=== PATIENT | female | born 1950 | race Caucasian/White ===

== ENCOUNTER 2016-11-22 13:16 | Outpatient (CLI) | payer OTHER ==
[2016-06-28 14:31] VITALS: BMI 45.3
[~2016-11-22 13:16] MED LIST: ACET-1172 PO; CHLO1CAP28 PO; CIPR-211 PO; CYAN1TAB52 SL; ENAL5TAB85 PO; ERGO400C2 PO; FLA250 PO; GLU500 PO; METR500T PO; MULT-1117; NITR-85 PO; PARO20TA51 PO; PHEN16.227 PO; RANI-281 PO; SACC250C3 PO; TYC3 PO
== END 2016-11-22 21:11 | disposition home or self-care (01) ==
LOC: SUS 13:16
PROVIDERS: ATTEND Internal Medicine
DX: R16.2 Hepatomegaly with splenomegaly, not elsewhere classified (principal)
CPT/HCPCS: 76700-TC

== ENCOUNTER 2017-02-14 13:05 | Inpatient (IN) | payer OTHER ==
[~2017-02-14] VITALS: Ht 154.9 cm; Wt 106.6 kg
[~2017-02-14 13:05] MED LIST changes: -CHLO1CAP28 PO; -ERGO400C2 PO; -NITR-85 PO; -RANI-281 PO; -TYC3 PO
[2017-02-14 16:03] VITALS: BP_SYST 137
[2017-02-14] MEDS ORDERED: FOLIC ACID SL SCH (16:15)
[2017-02-14] MEDS ORDERED: DEXTROSE 50% JECT 50 ML DISP.SYRIN IVP PRN (16:15)
[2017-02-14] MEDS ORDERED: CYANOCOBALAMIN SL SCH (16:15)
[2017-02-14] MEDS ORDERED: INSULIN REGULAR, HUMAN 100 UNITS/ML, 10 ML VIAL (novoLIN R) SUBCUT PRN (16:15)
[2017-02-14] MEDS ORDERED: IRON DEXTRAN COMPLEX 25 MG in NS 50 ML IV ONE (16:15)
[2017-02-14] MEDS ORDERED: metroNIDAZOLE 250 MG TABLET PO SCH (17:00)
[2017-02-14 17:08] LABS: CALCIUM 8.8 mg/dL (8.4-11.0); CREATININE 1.25 mg/dL (0.55-1.30); POTASSIUM 4.1 mmol/L (3.5-5.1)
[2017-02-14 17:13] LABS: ALBUMIN 3.7 g/dL (3.4-4.8); TOTAL BILIRUBIN 0.2 mg/dL (0.0-1.0); TOTAL PROTEIN, SERUM 7.7 g/dL (6.4-8.3)
[2017-02-14 17:20] LABS: BASOPHILS % (AUTO) 0.4 % (0.0-2.0); EOSINOPHILS # (AUTO) 0.2 K/uL (0.0-0.4); HEMATOCRIT 31.8 % (36-48); LYMPHOCYTES # (AUTO) 1.8 K/uL (1.0-5.5); LYMPHOCYTES % (AUTO) 15.4 % (20.5-51.5); MEAN CORPUSCULAR HEMOGLOBIN 26 pg (27-31); MEAN CORPUSCULAR HGB CONC 31 % (32-36); MEAN CORPUSCULAR VOLUME 83 fL (79.0-98.0); MONOCYTES # (AUTO) 0.4 K/uL (0.0-1.0); MONOCYTES % (AUTO) 3.7 % (1.7-9.3); NEUTROPHILS # (AUTO) 9.6 K/uL (1.8-7.7); NEUTROPHILS % (AUTO) 78.5 % (40.0-70.0); PLATELET COUNT (AUTO) 512 K/uL (130-430); RED BLOOD CELL COUNT(AUTO) 3.84 MIL/uL (4.2-6.2); RED CELL DISTRIBUTION WIDTH 14.2 % (9.0-15.0)
[2017-02-14 17:32] LABS: IRON (SERUM) 25 mcg/dL (37-145); TOTAL IRON BIND. CAPACITY 446 ug/dL (250-450)
[2017-02-14] MEDS: LR 1,000 ML IV SCH (17:54)
[2017-02-14] MEDS ORDERED: IRON DEXTRAN COMPLEX 1,000 MG in NS 500 ML IV ONE (18:00)
[2017-02-14] MEDS: metFORMIN HCL 500 MG TABLET PO SCH (18:06)
[2017-02-14 19:30] VITALS: BP_SYST 120
[2017-02-14] MEDS: PARoxetine HCL 20 MG TABLET PO SCH (21:20)
[2017-02-14] MEDS: metroNIDAZOLE 500 MG TABLET PO SCH (21:20)
[2017-02-14] MEDS: BELLADONNA ALKALOIDS/PHENOBARB 16.2 MG TABLET PO SCH (21:20)
[2017-02-14] MEDS: ENALAPRIL MALEATE 5 MG TABLET (VASOTEC) PO SCH (21:20)
[2017-02-14] MEDS: LACTOBACILLUS RHAMNOSUS GG 1 CAP CAPSULE PO SCH (21:21)
[2017-02-14 23:36] VITALS: BP_SYST 101
[2017-02-15] MEDS: ACETAMINOPHEN/CODEINE 300 MG-30 MG TABLET PO PRN ×2 (03:37→12:51)
[2017-02-15 03:46] VITALS: BP_SYST 99
[2017-02-15 06:47] LABS: BILIRUBIN,URINE NEGATIVE (NEGATIVE); BLOOD, URINE NEGATIVE (NEGATIVE); CLARITY/URINE CLEAR (CLEAR); COLOR,URINE YELLOW (YELLOW); GLUCOSE,URINE NEGATIVE (NEGATIVE); KETONES,URINE NEGATIVE (NEGATIVE); LEUKOCYTE ESTERASE ,URINE 1+ (NEGATIVE); NITRITE, URINE NEGATIVE (NEGATIVE); PROTEIN URINE NEGATIVE (NEGATIVE); UROBILINOGEN,URINE 0.2 (0.2-1.0)
[2017-02-15 07:28] LABS: BASOPHILS % (AUTO) 0.4 % (0.0-2.0); EOSINOPHILS # (AUTO) 0.2 K/uL (0.0-0.4); EOSINOPHILS % (AUTO) 2.5 % (0.0-4.0); HEMATOCRIT 26.4 % (36-48); HEMOGLOBIN 8.4 g/dL (12.0-16.0); LYMPHOCYTES # (AUTO) 1.6 K/uL (1.0-5.5); LYMPHOCYTES % (AUTO) 18.3 % (20.5-51.5); MEAN CORPUSCULAR HEMOGLOBIN 26 pg (27-31); MEAN CORPUSCULAR HGB CONC 32 % (32-36); MEAN CORPUSCULAR VOLUME 83 fL (79.0-98.0); MONOCYTES # (AUTO) 0.6 K/uL (0.0-1.0); MONOCYTES % (AUTO) 6.6 % (1.7-9.3); NEUTROPHILS # (AUTO) 6.2 K/uL (1.8-7.7); NEUTROPHILS % (AUTO) 72.2 % (40.0-70.0); PLATELET COUNT (AUTO) 372 K/uL (130-430)
[2017-02-15 07:44] LABS: WHITE BLOOD COUNT (AUTO) 8.6 K/uL (4.8-10.8)
[2017-02-15 07:54] VITALS: BP_SYST 101
[2017-02-15 07:57] LABS: CALCIUM 8.4 mg/dL (8.4-11.0); CREATININE 1.08 mg/dL (0.55-1.30); POTASSIUM 4.1 mmol/L (3.5-5.1); THYROID STIMULATING HORMONE 1.9 uIu/mL (0.34-4.82)
[2017-02-15] MEDS: BELLADONNA ALKALOIDS/PHENOBARB 16.2 MG TABLET PO SCH ×2 (08:02→21:44)
[2017-02-15] MEDS: metFORMIN HCL 500 MG TABLET PO SCH ×2 (08:02→18:41)
[2017-02-15] MEDS: ASPIRIN 81 MG TABLET(ECOTRIN) PO SCH (08:02)
[2017-02-15] MEDS: PARoxetine HCL 20 MG TABLET PO SCH ×2 (08:02→21:44)
[2017-02-15] MEDS: LACTOBACILLUS RHAMNOSUS GG 1 CAP CAPSULE PO SCH ×2 (08:03→21:44)
[2017-02-15] MEDS: metroNIDAZOLE 500 MG TABLET PO SCH ×3 (08:03→21:44)
[2017-02-15 08:49] LABS: BACTERIA,URINE FEW /HPF (None Seen); RBC,URINE 0-3 /HPF (0-3)
[2017-02-15 08:50] LABS: HYALINE CASTS, URINE 0-10 /LPF (None Seen)
[2017-02-15] MEDS ORDERED: MULTIVITAMINS TAB 1 TABLET PO SCH (09:00)
[2017-02-15] MEDS: LR 1,000 ML IV SCH (09:10)
[2017-02-15 11:32] VITALS: BP_SYST 97
[2017-02-15] MEDS ORDERED: IRON DEXTRAN COMPLEX 500 MG in NS 500 ML IV ONE ×2 (13:00→14:38)
[2017-02-15 16:32] VITALS: BP_SYST 123
[2017-02-15] MEDS: MULTIVITAMINS TAB 1 TABLET PO SCH (18:41)
[2017-02-15 19:50] VITALS: BP_SYST 147
[2017-02-15] MEDS: ENALAPRIL MALEATE 5 MG TABLET (VASOTEC) PO SCH (21:00)
[2017-02-15] MEDS ORDERED: ALTEPLASE 2 MG VIAL MC ONE ×3 (21:00→21:54)
[2017-02-16 00:10] VITALS: BP_SYST 114
[2017-02-16 04:23] VITALS: BP_SYST 103
[2017-02-16] MEDS: LR 1,000 ML IV SCH ×2 (05:32→16:29)
[2017-02-16 07:32] LABS: BASOPHILS % (AUTO) 0.5 % (0.0-2.0); EOSINOPHILS # (AUTO) 0.3 K/uL (0.0-0.4); EOSINOPHILS % (AUTO) 3.2 % (0.0-4.0); HEMATOCRIT 26.9 % (36-48); HEMOGLOBIN 8.5 g/dL (12.0-16.0); LYMPHOCYTES # (AUTO) 1.5 K/uL (1.0-5.5); MEAN CORPUSCULAR HEMOGLOBIN 26 pg (27-31); MEAN CORPUSCULAR HGB CONC 32 % (32-36); MEAN CORPUSCULAR VOLUME 83 fL (79.0-98.0); MONOCYTES # (AUTO) 0.6 K/uL (0.0-1.0); MONOCYTES % (AUTO) 6.9 % (1.7-9.3); NEUTROPHILS # (AUTO) 6.8 K/uL (1.8-7.7); NEUTROPHILS % (AUTO) 73.4 % (40.0-70.0); PLATELET COUNT (AUTO) 365 K/uL (130-430); RED BLOOD CELL COUNT(AUTO) 3.25 MIL/uL (4.2-6.2); RED CELL DISTRIBUTION WIDTH 14.9 % (9.0-15.0); WHITE BLOOD COUNT (AUTO) 9.1 K/uL (4.8-10.8)
[2017-02-16 07:47] LABS: CALCIUM 8.7 mg/dL (8.4-11.0); CREATININE 1.03 mg/dL (0.55-1.30); POTASSIUM 4.4 mmol/L (3.5-5.1)
[2017-02-16 08:53] VITALS: BP_SYST 106
[2017-02-16] MEDS: BELLADONNA ALKALOIDS/PHENOBARB 16.2 MG TABLET PO SCH ×2 (09:10→21:31)
[2017-02-16] MEDS: metFORMIN HCL 500 MG TABLET PO SCH ×2 (09:11→18:22)
[2017-02-16] MEDS: LACTOBACILLUS RHAMNOSUS GG 1 CAP CAPSULE PO SCH ×2 (09:11→21:30)
[2017-02-16] MEDS: metroNIDAZOLE 500 MG TABLET PO SCH ×3 (09:11→21:30)
[2017-02-16] MEDS: MULTIVITAMINS TAB 1 TABLET PO SCH ×2 (09:11→18:22)
[2017-02-16] MEDS: PARoxetine HCL 20 MG TABLET PO SCH ×2 (09:11→21:31)
[2017-02-16] MEDS: ASPIRIN 81 MG TABLET(ECOTRIN) PO SCH (09:11)
[2017-02-16] MEDS: ACETAMINOPHEN/CODEINE 300 MG-30 MG TABLET PO PRN (11:31)
[2017-02-16 11:35] VITALS: BP_SYST 135
[2017-02-16 11:51] LABS: RETICULOCYTE COUNT 3.4 % (0.5-1.5)
[2017-02-16] MEDS: cefTRIAXone 1 GM in D5W 50 ML IV SCH ×2 (13:14→18:21)
[2017-02-16] MEDS ORDERED: DIATR MEGLU/DIATRIZ SOD 30 ML SOLUTION PO ONE (13:25)
[2017-02-16] MEDS ORDERED: IOHEXOL 100 ML IV ONE (15:50)
[2017-02-16 15:56] VITALS: BP_SYST 109
[2017-02-16 19:50] VITALS: BP_SYST 123
[2017-02-16] MEDS: ENALAPRIL MALEATE 5 MG TABLET (VASOTEC) PO SCH (21:31)
[2017-02-17] VITALS (8 sets, daily range): BP systolic 97–125
[2017-02-17] MEDS: PARoxetine HCL 20 MG TABLET PO SCH ×2 (08:17→20:33)
[2017-02-17] MEDS: LACTOBACILLUS RHAMNOSUS GG 1 CAP CAPSULE PO SCH ×2 (08:17→20:33)
[2017-02-17] MEDS: metFORMIN HCL 500 MG TABLET PO SCH ×2 (08:17→18:20)
[2017-02-17] MEDS: ASPIRIN 81 MG TABLET(ECOTRIN) PO SCH (08:17)
[2017-02-17] MEDS: metroNIDAZOLE 500 MG TABLET PO SCH ×3 (08:18→20:33)
[2017-02-17] MEDS: MULTIVITAMINS TAB 1 TABLET PO SCH ×2 (08:18→18:20)
[2017-02-17] MEDS: BELLADONNA ALKALOIDS/PHENOBARB 16.2 MG TABLET PO SCH ×2 (08:18→20:33)
[2017-02-17] MEDS: LR 1,000 ML IV SCH ×2 (09:09→20:34)
[2017-02-17] MEDS: cefTRIAXone 1 GM in D5W 50 ML IV SCH (12:30)
[2017-02-17 12:45] LABS: BASOPHILS # (AUTO) 0.2 K/uL (0.0-0.2); BASOPHILS % (AUTO) 1.8 % (0.0-2.0); EOSINOPHILS # (AUTO) 0.2 K/uL (0.0-0.4); EOSINOPHILS % (AUTO) 1.9 % (0.0-4.0); HEMATOCRIT 33.6 % (36-48); HEMOGLOBIN 10.7 g/dL (12.0-16.0); LYMPHOCYTES # (AUTO) 1.4 K/uL (1.0-5.5); LYMPHOCYTES % (AUTO) 12.6 % (20.5-51.5); MEAN CORPUSCULAR HEMOGLOBIN 26 pg (27-31); MEAN CORPUSCULAR HGB CONC 32 % (32-36); MEAN CORPUSCULAR VOLUME 83 fL (79.0-98.0); MONOCYTES # (AUTO) 0.7 K/uL (0.0-1.0); MONOCYTES % (AUTO) 6.1 % (1.7-9.3); NEUTROPHILS # (AUTO) 8.6 K/uL (1.8-7.7); NEUTROPHILS % (AUTO) 77.6 % (40.0-70.0); PLATELET COUNT (AUTO) 436 K/uL (130-430); RED BLOOD CELL COUNT(AUTO) 4.05 MIL/uL (4.2-6.2); RED CELL DISTRIBUTION WIDTH 15.1 % (9.0-15.0); WHITE BLOOD COUNT (AUTO) 11.1 K/uL (4.8-10.8)
[2017-02-17] MEDS: ACETAMINOPHEN/CODEINE 300 MG-30 MG TABLET PO PRN (13:34)
[2017-02-17] MEDS ORDERED: BISACODYL 5 MG TABLET.DR (DULCOLAX) PO ONE (17:00)
[2017-02-17] MEDS ORDERED: GOLYTELY / COLYTE SOLUTION 4 LITERS PO ONE (18:00)
[2017-02-17] MEDS: ENALAPRIL MALEATE 5 MG TABLET (VASOTEC) PO SCH (20:34)
[2017-02-17] MEDS ORDERED: PRO40 PO (22:37)
[2017-02-17] MEDS ORDERED: METR500T PO (22:38)
[2017-02-17] MEDS ORDERED: L.RH1CAP PO (22:39)
[2017-02-18 00:14] VITALS: BP_SYST 107
== END 2017-02-17 23:59 | disposition home or self-care (01) | DRG 812 ==
LOC: SMU 15:30
PROVIDERS: ADMIT Internal Medicine; ATTEND Internal Medicine
DX: D50.9 Iron deficiency anemia, unspecified (principal); N39.0 Urinary tract infection, site not specified; K51.90 Ulcerative colitis, unspecified, without complications; K92.2 Gastrointestinal hemorrhage, unspecified; Z68.41 Body mass index [BMI] 40.0-44.9, adult; K27.9 Peptic ulcer, site unspecified, unspecified as acute or chronic, without hemorrhage or perforation; M41.9 Scoliosis, unspecified; K52.9 Noninfective gastroenteritis and colitis, unspecified; E11.9 Type 2 diabetes mellitus without complications; I10 Essential (primary) hypertension; E66.9 Obesity, unspecified; Z88.8 Allergy status to other drugs, medicaments and biological substances; Z88.0 Allergy status to penicillin; Z90.49 Acquired absence of other specified parts of digestive tract; Z90.710 Acquired absence of both cervix and uterus; Z86.19 Personal history of other infectious and parasitic diseases
CPT/HCPCS: 36415; 74000-TC; 80048; 80053; 80061; 81000-TC; 82272; 82306; 82607; 82746; 82962; 83540-TC; 83550-TC; 83690-TC; 84443-TC; 85025; 85044-TC; 87045-TC; 87046; 87086; 87177; 87230-TC; 89055; J0696; J1750; J1815; J2997; J7040; J7060; J7120; Q9964; Q9967

== ENCOUNTER 2018-03-24 17:21 | Inpatient (IN) | payer OTHER ==
[~2018-03-24] VITALS: Ht 154.9 cm; Wt 95.3 kg
[~2018-03-24 17:21] MED LIST changes: +L.RH1CAP PO; +PRO40 PO
[2018-03-24 17:30] VITALS: BP_SYST 131
[2018-03-24 17:49] VITALS: BP_SYST 131
[2018-03-24] MEDS ORDERED: [UNRECOGNIZED DRUG - OTHER] (17:49)
[2018-03-24] MEDS ORDERED: MESA500C PO (17:49)
[2018-03-24] MEDS: LR 1,000 ML IV SCH (18:15)
[2018-03-24 18:49] LABS: BASOPHILS % (AUTO) 0.2 % (0.0-2.0); EOSINOPHILS # (AUTO) 0.5 K/uL (0.0-0.4); EOSINOPHILS % (AUTO) 3.7 % (0.0-4.0); HEMATOCRIT 35.9 % (36-48); HEMOGLOBIN 11.9 g/dL (12.0-16.0); LYMPHOCYTES # (AUTO) 1.4 K/uL (1.0-5.5); LYMPHOCYTES % (AUTO) 10.6 % (20.5-51.5); MEAN CORPUSCULAR HEMOGLOBIN 30 pg (27-31); MEAN CORPUSCULAR HGB CONC 33 % (32-36); MEAN CORPUSCULAR VOLUME 89 fL (79.0-98.0); MONOCYTES # (AUTO) 0.7 K/uL (0.0-1.0); MONOCYTES % (AUTO) 5.6 % (1.7-9.3); NEUTROPHILS # (AUTO) 10.6 K/uL (1.8-7.7); NEUTROPHILS % (AUTO) 79.9 % (40.0-70.0); PLATELET COUNT (AUTO) 415 K/uL (130-430); RED BLOOD CELL COUNT(AUTO) 4.02 MIL/uL (4.2-6.2); WHITE BLOOD COUNT (AUTO) 13.2 K/uL (4.8-10.8)
[2018-03-24 18:59] LABS: CALCIUM 8.7 mg/dL (8.4-11.0); CREATININE 1.45 mg/dL (0.55-1.30); POTASSIUM 3.8 mmol/L (3.5-5.1)
[2018-03-24 19:04] LABS: TOTAL IRON BIND. CAPACITY 373 ug/dL (250-450)
[2018-03-24 19:05] LABS: ALBUMIN 3.5 g/dL (3.4-4.8); TOTAL BILIRUBIN 0.4 mg/dL (0.0-1.0)
[2018-03-24 19:10] VITALS: BP_SYST 115
[2018-03-24] MEDS ORDERED: INSULIN REGULAR, HUMAN 100 UNITS/ML, 10 ML VIAL (novoLIN R) SUBCUT PRN (20:00)
[2018-03-24] MEDS ORDERED: DEXTROSE 50% JECT 50 ML DISP.SYRIN IVP PRN (20:00)
[2018-03-24] MEDS ORDERED: NON-FORMULARY MEDICATION (Saccharomyces Boulardii (Florastor) 250 MG) PO SCH (21:00)
[2018-03-24] MEDS ORDERED: metroNIDAZOLE 500 mg/NS 200 ML IV ONE (21:59)
[2018-03-24] MEDS ORDERED: VANCOMYCIN HCL 250 MG CAPSULE ONE (22:58)
[2018-03-24] MEDS: PARoxetine HCL 20 MG TABLET PO SCH (23:05)
[2018-03-24] MEDS: VANCOMYCIN HCL 250 MG CAPSULE PO SCH (23:05)
[2018-03-24] MEDS: metroNIDAZOLE 500 mg/NS 100 ML IV SCH (23:06)
[2018-03-24] MEDS ORDERED: ACETAMINOPHEN 325 MG TABLET PO PRN (23:30)
[2018-03-24] MEDS ORDERED: TEMAZEPAM 15 MG CAPSULE PO PRN (23:30)
[2018-03-24] MEDS ORDERED: traMADol HCL HCL 50 MG TABLET (ULTRAM) PO PRN (23:30)
[2018-03-25 00:20] VITALS: BP_SYST 128
[2018-03-25] MEDS: LR 1,000 ML IV SCH ×2 (01:20→13:43)
[2018-03-25] MEDS: metroNIDAZOLE 500 mg/NS 100 ML IV SCH ×3 (05:23→21:27)
[2018-03-25 07:38] LABS: BASOPHILS % (AUTO) 0.5 % (0.0-2.0); EOSINOPHILS # (AUTO) 0.4 K/uL (0.0-0.4); EOSINOPHILS % (AUTO) 5.5 % (0.0-4.0); HEMATOCRIT 34.2 % (36-48); HEMOGLOBIN 11.3 g/dL (12.0-16.0); LYMPHOCYTES # (AUTO) 1.2 K/uL (1.0-5.5); LYMPHOCYTES % (AUTO) 14.8 % (20.5-51.5); MEAN CORPUSCULAR HEMOGLOBIN 30 pg (27-31); MEAN CORPUSCULAR HGB CONC 33 % (32-36); MEAN CORPUSCULAR VOLUME 91 fL (79.0-98.0); MONOCYTES # (AUTO) 0.5 K/uL (0.0-1.0); NEUTROPHILS # (AUTO) 5.9 K/uL (1.8-7.7); NEUTROPHILS % (AUTO) 73.2 % (40.0-70.0); RED BLOOD CELL COUNT(AUTO) 3.75 MIL/uL (4.2-6.2); RED CELL DISTRIBUTION WIDTH 12.9 % (9.0-15.0)
[2018-03-25 07:41] LABS: BILIRUBIN,URINE NEGATIVE (NEGATIVE); BLOOD, URINE NEGATIVE (NEGATIVE); CLARITY/URINE CLEAR (CLEAR); COLOR,URINE YELLOW (YELLOW); GLUCOSE,URINE NEGATIVE (NEGATIVE); KETONES,URINE NEGATIVE (NEGATIVE); LEUKOCYTE ESTERASE ,URINE NEGATIVE (NEGATIVE); NITRITE, URINE NEGATIVE (NEGATIVE); PH,URINE 5.5 (5.0-8.0); PROTEIN URINE NEGATIVE (NEGATIVE); UROBILINOGEN,URINE 0.2 (0.2-1.0)
[2018-03-25 07:50] VITALS: BP_SYST 121
[2018-03-25 08:39] LABS: PLATELET COUNT (AUTO) 344 K/uL (130-430)
[2018-03-25 08:47] LABS: CALCIUM 8.7 mg/dL (8.4-11.0); CREATININE 1.21 mg/dL (0.55-1.30); FREE T4 (FREE THYROXINE) 0.6 ng/dL (0.6-1.6); THYROID STIMULATING HORMONE 1.37 uIu/mL (0.34-4.82)
[2018-03-25] MEDS: PARoxetine HCL 20 MG TABLET PO SCH ×2 (09:44→20:20)
[2018-03-25] MEDS: VANCOMYCIN HCL 250 MG CAPSULE PO SCH ×4 (09:45→20:20)
[2018-03-25] MEDS: MESALAMINE 250 MG CAPSULE.SA PO SCH ×2 (09:47→20:21)
[2018-03-25] MEDS: LACTOBACILLUS RHAMNOSUS GG 1 CAP CAPSULE PO SCH ×2 (09:51→20:19)
[2018-03-25] MEDS: MULTIVITAMINS TAB 1 TABLET PO SCH (09:51)
[2018-03-25] MEDS: PANTOPRAZOLE SODIUM 40 MG TAB PO SCH (09:54)
[2018-03-25] MEDS: ONDANSETRON HCL 4 MG/2 ML VIAL IVP PRN (11:18)
[2018-03-25] MEDS: traMADol HCL HCL 50 MG TABLET (ULTRAM) PO PRN (11:21)
[2018-03-25 12:16] VITALS: BP_SYST 127
[2018-03-25 16:14] VITALS: BP_SYST 105
[2018-03-25 20:10] VITALS: BP_SYST 108
[2018-03-25] MEDS ORDERED: TEMAZEPAM 15 MG CAPSULE PO PRN (21:00)
[2018-03-26 00:12] VITALS: BP_SYST 108
[2018-03-26] MEDS: metroNIDAZOLE 500 mg/NS 100 ML IV SCH ×3 (04:59→21:54)
[2018-03-26] MEDS: LR 1,000 ML IV SCH ×2 (05:00→20:25)
[2018-03-26 07:08] LABS: CALCIUM 8.7 mg/dL (8.4-11.0); CREATININE 1.26 mg/dL (0.55-1.30)
[2018-03-26 07:14] LABS: BASOPHILS % (AUTO) 0.3 % (0.0-2.0); EOSINOPHILS # (AUTO) 0.4 K/uL (0.0-0.4); EOSINOPHILS % (AUTO) 5.5 % (0.0-4.0); HEMATOCRIT 32.3 % (36-48); HEMOGLOBIN 10.6 g/dL (12.0-16.0); LYMPHOCYTES # (AUTO) 1.3 K/uL (1.0-5.5); LYMPHOCYTES % (AUTO) 16.4 % (20.5-51.5); MEAN CORPUSCULAR HEMOGLOBIN 30 pg (27-31); MEAN CORPUSCULAR HGB CONC 33 % (32-36); MEAN CORPUSCULAR VOLUME 91 fL (79.0-98.0); MONOCYTES # (AUTO) 0.5 K/uL (0.0-1.0); MONOCYTES % (AUTO) 6.5 % (1.7-9.3); NEUTROPHILS # (AUTO) 5.8 K/uL (1.8-7.7); NEUTROPHILS % (AUTO) 71.3 % (40.0-70.0); PLATELET COUNT (AUTO) 307 K/uL (130-430); RED BLOOD CELL COUNT(AUTO) 3.53 MIL/uL (4.2-6.2); RED CELL DISTRIBUTION WIDTH 13.1 % (9.0-15.0)
[2018-03-26 08:00] VITALS: BP_SYST 127
[2018-03-26] MEDS: VANCOMYCIN HCL 250 MG CAPSULE PO SCH ×4 (08:45→20:24)
[2018-03-26] MEDS: PARoxetine HCL 20 MG TABLET PO SCH ×2 (08:45→20:24)
[2018-03-26] MEDS: PANTOPRAZOLE SODIUM 40 MG TAB PO SCH (08:46)
[2018-03-26] MEDS: MULTIVITAMINS TAB 1 TABLET PO SCH (08:46)
[2018-03-26] MEDS: LACTOBACILLUS RHAMNOSUS GG 1 CAP CAPSULE PO SCH ×2 (08:46→20:24)
[2018-03-26] MEDS: MESALAMINE 250 MG CAPSULE.SA PO SCH ×2 (08:47→20:25)
[2018-03-26] MEDS: ONDANSETRON HCL 4 MG/2 ML VIAL IVP PRN (09:34)
[2018-03-26 12:00] VITALS: BP_SYST 108
[2018-03-26] MEDS: SOD FERRIC GLUC COMPLEX/SUC 125 MG in NS 100 ML IV SCH (14:47)
[2018-03-26] MEDS: traMADol HCL HCL 50 MG TABLET (ULTRAM) PO PRN (14:53)
[2018-03-26 16:00] VITALS: BP_SYST 116
[2018-03-26 19:58] VITALS: BP_SYST 101
[2018-03-27] VITALS: BP_SYST 121
[2018-03-27] MEDS: metroNIDAZOLE 500 mg/NS 100 ML IV SCH ×2 (06:14→14:15)
[2018-03-27] MEDS: MULTIVITAMINS TAB 1 TABLET PO SCH (08:11)
[2018-03-27] MEDS: LACTOBACILLUS RHAMNOSUS GG 1 CAP CAPSULE PO SCH (08:11)
[2018-03-27] MEDS: PANTOPRAZOLE SODIUM 40 MG TAB PO SCH (08:11)
[2018-03-27] MEDS: PARoxetine HCL 20 MG TABLET PO SCH (08:11)
[2018-03-27] MEDS: VANCOMYCIN HCL 250 MG CAPSULE PO SCH ×3 (08:11→16:41)
[2018-03-27] MEDS: MESALAMINE 250 MG CAPSULE.SA PO SCH (08:12)
[2018-03-27 08:45] VITALS: BP_SYST 128
[2018-03-27] MEDS: LR 1,000 ML IV SCH (11:18)
[2018-03-27 11:21] VITALS: BP_SYST 101
[2018-03-27] MEDS: SOD FERRIC GLUC COMPLEX/SUC 125 MG in NS 100 ML IV SCH (14:14)
[2018-03-27 15:21] VITALS: BP_SYST 122
[2018-03-27] MEDS ORDERED: CYANOCOBALAMIN 1000 MCG/ML VIAL IM ONE (17:00)
[2018-03-27] MEDS ORDERED: FOLIC ACID 1 MG TABLET PO ONE (17:00)
[2018-03-27 17:17] VITALS: BP_SYST 122
[2018-03-28] MEDS ORDERED: FOLIC ACID 1 MG TABLET PO SCH (09:00)
== END 2018-03-27 17:30 | disposition home or self-care (01) | DRG 683 ==
LOC: SMU 17:21
PROVIDERS: ADMIT Internal Medicine; ATTEND Internal Medicine
DX: N17.9 Acute kidney failure, unspecified (principal); R65.10 Systemic inflammatory response syndrome (SIRS) of non-infectious origin without acute organ dysfunction; I70.90 Unspecified atherosclerosis; D50.9 Iron deficiency anemia, unspecified; K44.9 Diaphragmatic hernia without obstruction or gangrene; K52.9 Noninfective gastroenteritis and colitis, unspecified; E86.0 Dehydration; E66.9 Obesity, unspecified; F32.9 Major depressive disorder, single episode, unspecified; I10 Essential (primary) hypertension; E11.9 Type 2 diabetes mellitus without complications; Z68.39 Body mass index [BMI] 39.0-39.9, adult; Z90.49 Acquired absence of other specified parts of digestive tract; Z90.710 Acquired absence of both cervix and uterus; Z79.899 Other long term (current) drug therapy; Z88.0 Allergy status to penicillin; Z88.6 Allergy status to analgesic agent; Z83.3 Family history of diabetes mellitus; Z98.84 Bariatric surgery status
CPT/HCPCS: 36415; 76770; 80048; 80053; 81003; 82150-TC; 82607; 82746; 82962; 83036; 83540-TC; 83550-TC; 83605; 83690-TC; 84439; 84443-TC; 85025; 87040-TC; 87045-TC; 87046; 87086; J1815; J2405; J2916; J3420; J3490; J7120

== ENCOUNTER 2018-09-17 14:01 | Inpatient (IN) | payer OTHER ==
[~2018-09-17] VITALS: Ht 154.9 cm; Wt 108.9 kg
[~2018-09-17 14:01] MED LIST changes: -ACET-1172 PO; -CIPR-211 PO; -CYAN1TAB52 SL; -ENAL5TAB85 PO; -FLA250 PO; -L.RH1CAP PO; +MESA500C PO; -METR500T PO; +PARO-63 PO; -PARO20TA51 PO; -PHEN16.227 PO; +[UNRECOGNIZED DRUG - OTHER]
[2018-09-17] MEDS ORDERED: NACL 0.9% 1,000 ML IV ONE ×2 (14:10→16:45)
[2018-09-17] MEDS ORDERED: ALBUTEROL SULFATE 0.083% 2.5 MG/3 ML VIAL.NEB IH ONE (14:15)
[2018-09-17] MEDS ORDERED: IPRATROPIUM BROM 0.5 MG/2.5 ML VIAL.NEB (ATROVENT) IH ONE (14:15)
[2018-09-17] MEDS ORDERED: methylPREDNISolone SOD SUCC/PF 62.5 MG/ML VIAL IVP ONE (14:15)
[2018-09-17 14:18] VITALS: BP_SYST 127
[2018-09-17] MEDS ORDERED: ACETAMINOPHEN 500 MG TABLET PO ONE (14:30)
[2018-09-17] MEDS ORDERED: DIPHENHYDRAMINE HCL 25 MG CAPSULE PO ONE (15:45)
[2018-09-17 15:55] LABS: MEAN CORPUSCULAR HEMOGLOBIN 26 pg (27-31); MEAN CORPUSCULAR HGB CONC 32 % (32-36); MEAN CORPUSCULAR VOLUME 81 fL (79.0-98.0); PLATELET COUNT (AUTO) 338 K/uL (130-430); RED BLOOD CELL COUNT(AUTO) 2.41 MIL/uL (4.2-6.2); RED CELL DISTRIBUTION WIDTH 16.2 % (9.0-15.0); WHITE BLOOD COUNT (AUTO) 13.1 K/uL (4.8-10.8)
[2018-09-17 15:56] LABS: CALCIUM 8.8 mg/dL (8.4-11.0); CREATININE 1.24 mg/dL (0.55-1.30); POTASSIUM 3.9 mmol/L (3.5-5.1)
[2018-09-17 15:57] LABS: HEMATOCRIT 19.5 % (36-48); HEMOGLOBIN 6.1 g/dL (12.0-16.0)
[2018-09-17 16:00] LABS: TOTAL BILIRUBIN 0.1 mg/dL (0.0-1.0)
[2018-09-17] MEDS ORDERED: DIPHENHYDRAMINE HCL 25 MG CAPSULE ONE (16:17)
[2018-09-17 16:21] LABS: BAND % (MANUAL) 2 % (0-6)
[2018-09-17 16:22] LABS: ATYPICAL LYMPHOCYTES % 0 % (0-0); BASOPHILS % (MANUAL) 0 % (0-2); EOSINOPHILS % (MANUAL) 0 % (0-7); LYMPHOCYTES % (MANUAL) 12 % (20-46); MONOCYTES % (MANUAL) 3 % (0-11)
[2018-09-17 16:37] LABS: BILIRUBIN,URINE NEGATIVE (NEGATIVE); BLOOD, URINE NEGATIVE (NEGATIVE); CLARITY/URINE SL CLOUDY (CLEAR); COLOR,URINE YELLOW (YELLOW); GLUCOSE,URINE NEGATIVE (NEGATIVE); KETONES,URINE NEGATIVE (NEGATIVE); LEUKOCYTE ESTERASE ,URINE 1+ (NEGATIVE); NITRITE, URINE POSITIVE (NEGATIVE); PROTEIN URINE TRACE (NEGATIVE); UROBILINOGEN,URINE 0.2 (0.2-1.0)
[2018-09-17 16:40] LABS: PROTHROMBIN TIME 10.4 SECS (9.5-12.5)
[2018-09-17] MEDS ORDERED: cefTRIAXone 1 GM IVPB PREMIX 50 ML IV ONE ×2 (16:45→17:22)
[2018-09-17 16:56] LABS: RBC,URINE 0-3 /HPF (0-3)
[2018-09-17 16:57] LABS: BACTERIA,URINE MODERATE /HPF (None Seen)
[2018-09-17] MEDS ORDERED: IRON DEXTRAN COMPLEX 25 MG in NS 50 ML IV ONE (17:00)
[2018-09-17] MEDS ORDERED: NS IV ONE (17:00)
[2018-09-17] MEDS ORDERED: IRON DEXTRAN COMPLEX IV ONE (17:00)
[2018-09-17] MEDS ORDERED: LIDOCAINE 1%, 20 ML MDV 20 ML ONE (17:05)
[2018-09-17] MEDS ORDERED: methylPREDNISolone SOD SUCC/PF 62.5 MG/ML VIAL ONE (17:21)
[2018-09-17] MEDS ORDERED: SUCR1TAB78 PO (17:32)
[2018-09-17] MEDS ORDERED: CYAN100010 PO (17:32)
[2018-09-17] MEDS ORDERED: LORA2TAB PO (17:32)
[2018-09-17] MEDS ORDERED: VITD400 PO (17:32)
[2018-09-17] MEDS ORDERED: TRAM50TA2 PO (17:32)
[2018-09-17] MEDS ORDERED: MULT-1117 PO (17:32)
[2018-09-17] MEDS ORDERED: LIDOCAINE 1% 10 MG/ML, 20 ML MDV INJ ONE (17:45)
[2018-09-17 18:01] LABS: TOTAL IRON BIND. CAPACITY 470 ug/dL (250-450)
[2018-09-17 18:23] VITALS: BP_SYST 129
[2018-09-17] MEDS ORDERED: traMADol HCL HCL 50 MG TABLET (ULTRAM) PO PRN (19:00)
[2018-09-17] MEDS ORDERED: DIPHENHYDRAMINE INJ 50 MG/ML VIAL IVP PRN (19:00)
[2018-09-17] MEDS ORDERED: ZOLPIDEM TARTRATE 5 MG TABLET PO PRN (19:00)
[2018-09-17 20:45] VITALS: BP_SYST 132
[2018-09-17] MEDS: MESALAMINE 250 MG CAPSULE.SA PO SCH (21:00)
[2018-09-18 00:20] VITALS: BP_SYST 139
[2018-09-18 07:09] LABS: BASOPHILS % (AUTO) 0.1 % (0.0-2.0); EOSINOPHILS % (AUTO) 0.1 % (0.0-4.0); LYMPHOCYTES % (AUTO) 5.8 % (20.5-51.5); MEAN CORPUSCULAR HEMOGLOBIN 25 pg (27-31); MEAN CORPUSCULAR HGB CONC 32 % (32-36); MEAN CORPUSCULAR VOLUME 79 fL (79.0-98.0); MONOCYTES # (AUTO) 0.2 K/uL (0.0-1.0); MONOCYTES % (AUTO) 1.3 % (1.7-9.3); NEUTROPHILS # (AUTO) 15.6 K/uL (1.8-7.7); NEUTROPHILS % (AUTO) 92.7 % (40.0-70.0); PLATELET COUNT (AUTO) 502 K/uL (130-430); RED BLOOD CELL COUNT(AUTO) 2.11 MIL/uL (4.2-6.2); RED CELL DISTRIBUTION WIDTH 16.3 % (9.0-15.0)
[2018-09-18 07:36] LABS: HEMATOCRIT 16.6 % (36-48); HEMOGLOBIN 5.3 g/dL (12.0-16.0)
[2018-09-18 07:51] LABS: ALBUMIN 2.6 g/dL (3.4-4.8); CALCIUM 8.9 mg/dL (8.4-11.0); CREATININE 1.02 mg/dL (0.55-1.30); POTASSIUM 4.3 mmol/L (3.5-5.1)
[2018-09-18 08:00] VITALS: BP_SYST 150
[2018-09-18 09:26] LABS: PROTHROMBIN TIME 9.9 SECS (9.5-12.5)
[2018-09-18 09:48] LABS: WHITE BLOOD COUNT (AUTO) 16.8 K/uL (4.8-10.8)
[2018-09-18 10:36] LABS: TOTAL BILIRUBIN 0.1 mg/dL (0.0-1.0)
[2018-09-18] MEDS: MESALAMINE 250 MG CAPSULE.SA PO SCH ×3 (11:03→22:13)
[2018-09-18 12:05] VITALS: BP_SYST 135
[2018-09-18] MEDS ORDERED: LACTOBACILLUS RHAMNOSUS GG 1 CAP CAPSULE PO ONE (13:00)
[2018-09-18] MEDS ORDERED: DEXTROSE 50% JECT 50 ML DISP.SYRIN IVP PRN (13:00)
[2018-09-18] MEDS ORDERED: traMADol HCL HCL 50 MG TABLET (ULTRAM) PO PRN (13:30)
[2018-09-18] MEDS ORDERED: LORazepam 1 MG TABLET PO PRN (13:30)
[2018-09-18] MEDS ORDERED: CYANOCOBALAMIN 1000 mCg TABLET PO ONE (13:30)
[2018-09-18 16:30] VITALS: BP_SYST 131
[2018-09-18] MEDS ORDERED: MESALAMINE 250 MG CAPSULE.SA PO SCH (17:00)
[2018-09-18] MEDS: cefTRIAXone 1 GM in D5W 50 ML IV SCH (17:13)
[2018-09-18] MEDS: LEVOFLOXACIN 500 MG/D5W 100 ML IV SCH (18:31)
[2018-09-18 20:20] VITALS: BP_SYST 127
[2018-09-18] MEDS: SUCRALFATE 1 GM TABLET PO SCH (22:12)
[2018-09-18] MEDS: TEMAZEPAM 15 MG CAPSULE PO SCH (22:13)
[2018-09-18] MEDS: PARoxetine HCL 20 MG TABLET PO SCH (22:13)
[2018-09-18] MEDS: LACTOBACILLUS RHAMNOSUS GG 1 CAP CAPSULE PO SCH (22:13)
[2018-09-18] MEDS: INSULIN REGULAR, HUMAN 100 UNITS/ML, 10 ML VIAL (novoLIN R) SUBCUT PRN (22:16)
[2018-09-19] VITALS: BP_SYST 120
[2018-09-19] MEDS: INSULIN REGULAR, HUMAN 100 UNITS/ML, 10 ML VIAL (novoLIN R) SUBCUT PRN (06:21)
[2018-09-19 07:17] LABS: BASOPHILS # (AUTO) 0.1 K/uL (0.0-0.2); BASOPHILS % (AUTO) 0.3 % (0.0-2.0); EOSINOPHILS % (AUTO) 0.2 % (0.0-4.0); HEMATOCRIT 22.2 % (36-48); HEMOGLOBIN 7.2 g/dL (12.0-16.0); LYMPHOCYTES # (AUTO) 1.4 K/uL (1.0-5.5); LYMPHOCYTES % (AUTO) 8.4 % (20.5-51.5); MEAN CORPUSCULAR HEMOGLOBIN 25 pg (27-31); MEAN CORPUSCULAR HGB CONC 32 % (32-36); MEAN CORPUSCULAR VOLUME 78 fL (79.0-98.0); MONOCYTES # (AUTO) 0.9 K/uL (0.0-1.0); MONOCYTES % (AUTO) 5.6 % (1.7-9.3); NEUTROPHILS # (AUTO) 14.5 K/uL (1.8-7.7); NEUTROPHILS % (AUTO) 85.5 % (40.0-70.0); PLATELET COUNT (AUTO) 485 K/uL (130-430); RED BLOOD CELL COUNT(AUTO) 2.86 MIL/uL (4.2-6.2); RED CELL DISTRIBUTION WIDTH 18.1 % (9.0-15.0); WHITE BLOOD COUNT (AUTO) 16.9 K/uL (4.8-10.8)
[2018-09-19 07:32] LABS: ALBUMIN 2.5 g/dL (3.4-4.8); CALCIUM 8.7 mg/dL (8.4-11.0); CREATININE 1.08 mg/dL (0.55-1.30); TOTAL BILIRUBIN 0.1 mg/dL (0.0-1.0)
[2018-09-19 07:56] LABS: POTASSIUM 4.5 mmol/L (3.5-5.1)
[2018-09-19 08:24] VITALS: BP_SYST 144
[2018-09-19] MEDS: MESALAMINE 250 MG CAPSULE.SA PO SCH ×4 (08:30→20:31)
[2018-09-19] MEDS: ACETAMINOPHEN 325 MG TABLET PO PRN (08:30)
[2018-09-19] MEDS: CYANOCOBALAMIN 1000 mCg TABLET PO SCH (08:31)
[2018-09-19] MEDS: CHOLECALCIFEROL (VITAMIN D3) 2,000 UNIT TABLET PO SCH (08:31)
[2018-09-19] MEDS: LACTOBACILLUS RHAMNOSUS GG 1 CAP CAPSULE PO SCH ×2 (08:35→20:31)
[2018-09-19] MEDS: SUCRALFATE 1 GM TABLET PO SCH ×4 (08:35→20:31)
[2018-09-19] MEDS ORDERED: PANTOPRAZOLE SODIUM 40 MG TAB PO SCH (09:00)
[2018-09-19] MEDS ORDERED: MULTIVITAMINS TAB 1 TABLET PO SCH (09:00)
[2018-09-19 12:13] VITALS: BP_SYST 119
[2018-09-19] MEDS: cefTRIAXone 1 GM in D5W 50 ML IV SCH (12:45)
[2018-09-19] MEDS: LEVOFLOXACIN 500 MG/D5W 100 ML IV SCH (13:41)
[2018-09-19] MEDS ORDERED: METOCLOPRAMIDE HCL 10 MG/2 ML VIAL ONE (15:53)
[2018-09-19 16:39] VITALS: BP_SYST 114
[2018-09-19 19:25] VITALS: BP_SYST 120
[2018-09-19] MEDS: PARoxetine HCL 20 MG TABLET PO SCH (20:30)
[2018-09-19] MEDS: PANTOPRAZOLE SODIUM 40 MG TAB PO SCH (20:30)
[2018-09-19] MEDS: MULTIVITAMINS TAB 1 TABLET PO SCH (20:31)
[2018-09-19] MEDS: TEMAZEPAM 15 MG CAPSULE PO SCH (20:31)
[2018-09-20 00:18] VITALS: BP_SYST 134
[2018-09-20 07:40] LABS: CALCIUM 8.7 mg/dL (8.4-11.0); POTASSIUM 3.9 mmol/L (3.5-5.1)
[2018-09-20 07:53] LABS: BASOPHILS # (AUTO) 0.1 K/uL (0.0-0.2); BASOPHILS % (AUTO) 0.4 % (0.0-2.0); EOSINOPHILS # (AUTO) 0.1 K/uL (0.0-0.4); EOSINOPHILS % (AUTO) 0.5 % (0.0-4.0); HEMATOCRIT 24.6 % (36-48); HEMOGLOBIN 7.9 g/dL (12.0-16.0); LYMPHOCYTES # (AUTO) 1.4 K/uL (1.0-5.5); LYMPHOCYTES % (AUTO) 8.7 % (20.5-51.5); MEAN CORPUSCULAR HEMOGLOBIN 25 pg (27-31); MEAN CORPUSCULAR HGB CONC 32 % (32-36); MEAN CORPUSCULAR VOLUME 78 fL (79.0-98.0); MONOCYTES % (AUTO) 6.3 % (1.7-9.3); NEUTROPHILS # (AUTO) 13.6 K/uL (1.8-7.7); NEUTROPHILS % (AUTO) 84.1 % (40.0-70.0); PLATELET COUNT (AUTO) 455 K/uL (130-430); RED BLOOD CELL COUNT(AUTO) 3.14 MIL/uL (4.2-6.2); RED CELL DISTRIBUTION WIDTH 18.5 % (9.0-15.0); WHITE BLOOD COUNT (AUTO) 16.3 K/uL (4.8-10.8)
[2018-09-20 08:10] VITALS: BP_SYST 107
[2018-09-20] MEDS: MULTIVITAMINS TAB 1 TABLET PO SCH ×2 (09:04→21:19)
[2018-09-20] MEDS: SUCRALFATE 1 GM TABLET PO SCH ×4 (09:04→21:18)
[2018-09-20] MEDS: LACTOBACILLUS RHAMNOSUS GG 1 CAP CAPSULE PO SCH ×2 (09:04→21:19)
[2018-09-20] MEDS: CHOLECALCIFEROL (VITAMIN D3) 2,000 UNIT TABLET PO SCH (09:05)
[2018-09-20] MEDS: PANTOPRAZOLE SODIUM 40 MG TAB PO SCH ×2 (09:05→21:19)
[2018-09-20] MEDS: CYANOCOBALAMIN 1000 mCg TABLET PO SCH (09:05)
[2018-09-20] MEDS: MESALAMINE 250 MG CAPSULE.SA PO SCH ×4 (09:06→21:20)
[2018-09-20] MEDS: cefTRIAXone 1 GM in D5W 50 ML IV SCH (12:01)
[2018-09-20 12:02] VITALS: BP_SYST 120
[2018-09-20] MEDS: ACETAMINOPHEN 325 MG TABLET PO PRN ×2 (13:16→20:37)
[2018-09-20 16:10] VITALS: BP_SYST 90
[2018-09-20] MEDS: PARoxetine HCL 20 MG TABLET PO SCH (21:18)
[2018-09-20] MEDS: TEMAZEPAM 15 MG CAPSULE PO SCH (22:11)
[2018-09-20 23:35] VITALS: BP_SYST 123
[2018-09-21 07:19] LABS: CREATININE 1.05 mg/dL (0.55-1.30); POTASSIUM 3.7 mmol/L (3.5-5.1)
[2018-09-21 08:00] VITALS: BP_SYST 139
[2018-09-21 08:20] LABS: BASOPHILS % (AUTO) 0.2 % (0.0-2.0); EOSINOPHILS # (AUTO) 0.3 K/uL (0.0-0.4); EOSINOPHILS % (AUTO) 1.6 % (0.0-4.0); HEMATOCRIT 23.5 % (36-48); HEMOGLOBIN 7.5 g/dL (12.0-16.0); LYMPHOCYTES # (AUTO) 1.7 K/uL (1.0-5.5); LYMPHOCYTES % (AUTO) 10.2 % (20.5-51.5); MEAN CORPUSCULAR HEMOGLOBIN 26 pg (27-31); MEAN CORPUSCULAR HGB CONC 32 % (32-36); MEAN CORPUSCULAR VOLUME 80 fL (79.0-98.0); MONOCYTES # (AUTO) 0.9 K/uL (0.0-1.0); MONOCYTES % (AUTO) 5.6 % (1.7-9.3); NEUTROPHILS # (AUTO) 13.5 K/uL (1.8-7.7); NEUTROPHILS % (AUTO) 82.4 % (40.0-70.0); PLATELET COUNT (AUTO) 421 K/uL (130-430); RED BLOOD CELL COUNT(AUTO) 2.94 MIL/uL (4.2-6.2); RED CELL DISTRIBUTION WIDTH 18.4 % (9.0-15.0); WHITE BLOOD COUNT (AUTO) 16.4 K/uL (4.8-10.8)
[2018-09-21] MEDS: CHOLECALCIFEROL (VITAMIN D3) 2,000 UNIT TABLET PO SCH (08:53)
[2018-09-21] MEDS: SUCRALFATE 1 GM TABLET PO SCH ×4 (08:53→20:32)
[2018-09-21] MEDS: PANTOPRAZOLE SODIUM 40 MG TAB PO SCH ×2 (08:53→20:32)
[2018-09-21] MEDS: MULTIVITAMINS TAB 1 TABLET PO SCH ×2 (08:53→20:33)
[2018-09-21] MEDS: LACTOBACILLUS RHAMNOSUS GG 1 CAP CAPSULE PO SCH ×2 (08:53→20:32)
[2018-09-21] MEDS: CYANOCOBALAMIN 1000 mCg TABLET PO SCH (08:53)
[2018-09-21] MEDS: MESALAMINE 250 MG CAPSULE.SA PO SCH ×4 (08:54→20:33)
[2018-09-21] MEDS: ACETAMINOPHEN 325 MG TABLET PO PRN (08:59)
[2018-09-21 12:02] VITALS: BP_SYST 130
[2018-09-21] MEDS: cefTRIAXone 1 GM in D5W 50 ML IV SCH (14:18)
[2018-09-21 16:30] VITALS: BP_SYST 113
[2018-09-21 20:00] VITALS: BP_SYST 127
[2018-09-21] MEDS: PARoxetine HCL 20 MG TABLET PO SCH (20:32)
[2018-09-21] MEDS: TEMAZEPAM 15 MG CAPSULE PO SCH (20:33)
[2018-09-22 05:19] VITALS: BP_SYST 133
[2018-09-22 07:45] VITALS: BP_SYST 135
[2018-09-22 08:46] LABS: BASOPHILS % (AUTO) 0.1 % (0.0-2.0); EOSINOPHILS # (AUTO) 0.2 K/uL (0.0-0.4); EOSINOPHILS % (AUTO) 1.4 % (0.0-4.0); HEMATOCRIT 26.3 % (36-48); HEMOGLOBIN 8.4 g/dL (12.0-16.0); LYMPHOCYTES # (AUTO) 1.4 K/uL (1.0-5.5); LYMPHOCYTES % (AUTO) 7.9 % (20.5-51.5); MEAN CORPUSCULAR HEMOGLOBIN 26 pg (27-31); MEAN CORPUSCULAR HGB CONC 32 % (32-36); MEAN CORPUSCULAR VOLUME 81 fL (79.0-98.0); MONOCYTES # (AUTO) 0.5 K/uL (0.0-1.0); MONOCYTES % (AUTO) 2.8 % (1.7-9.3); NEUTROPHILS # (AUTO) 15.2 K/uL (1.8-7.7); NEUTROPHILS % (AUTO) 87.8 % (40.0-70.0); PLATELET COUNT (AUTO) 456 K/uL (130-430); RED BLOOD CELL COUNT(AUTO) 3.25 MIL/uL (4.2-6.2); WHITE BLOOD COUNT (AUTO) 17.3 K/uL (4.8-10.8)
[2018-09-22 08:49] LABS: CALCIUM 8.9 mg/dL (8.4-11.0); CREATININE 1.02 mg/dL (0.55-1.30); POTASSIUM 3.9 mmol/L (3.5-5.1)
[2018-09-22] MEDS: PANTOPRAZOLE SODIUM 40 MG TAB PO SCH (09:17)
[2018-09-22] MEDS: MULTIVITAMINS TAB 1 TABLET PO SCH (09:18)
[2018-09-22] MEDS: CHOLECALCIFEROL (VITAMIN D3) 2,000 UNIT TABLET PO SCH (09:18)
[2018-09-22] MEDS: LACTOBACILLUS RHAMNOSUS GG 1 CAP CAPSULE PO SCH (09:18)
[2018-09-22] MEDS: SUCRALFATE 1 GM TABLET PO SCH (09:18)
[2018-09-22] MEDS: CYANOCOBALAMIN 1000 mCg TABLET PO SCH (09:18)
[2018-09-22] MEDS: MESALAMINE 250 MG CAPSULE.SA PO SCH (09:18)
[2018-09-22 10:08] VITALS: BP_SYST 108
[2018-09-22] MEDS: cefTRIAXone 1 GM in D5W 50 ML IV SCH (10:14)
[2018-09-22 11:31] VITALS: BP_SYST 107
== END 2018-09-22 11:45 | disposition home or self-care (01) | DRG 811 ==
LOC: SED 14:01 → SMU 16:51
PROVIDERS: ADMIT Internal Medicine; ATTEND Internal Medicine
PROC: 05HY33Z Insertion of Infusion Device into Upper Vein, Percutaneous Approach (ICD-10-PCS; principal; 2018-09-17)
PROC: 30233N1 Transfusion of Nonautologous Red Blood Cells into Peripheral Vein, Percutaneous Approach (ICD-10-PCS; 2018-09-18)
PROC: 02HV33Z Insertion of Infusion Device into Superior Vena Cava, Percutaneous Approach (ICD-10-PCS; 2018-09-18)
PROC: B548ZZA Ultrasonography of Superior Vena Cava, Guidance (ICD-10-PCS; 2018-09-18)
DX: D62 Acute posthemorrhagic anemia (principal); E43 Unspecified severe protein-calorie malnutrition; Z68.42 Body mass index [BMI] 45.0-49.9, adult; N39.0 Urinary tract infection, site not specified; Z53.29 Procedure and treatment not carried out because of patient's decision for other reasons; E11.9 Type 2 diabetes mellitus without complications; K21.9 Gastro-esophageal reflux disease without esophagitis; K44.9 Diaphragmatic hernia without obstruction or gangrene; D50.9 Iron deficiency anemia, unspecified; F41.9 Anxiety disorder, unspecified; F32.9 Major depressive disorder, single episode, unspecified; E66.01 Morbid (severe) obesity due to excess calories; I70.90 Unspecified atherosclerosis; Z90.710 Acquired absence of both cervix and uterus; Z98.84 Bariatric surgery status; Z90.49 Acquired absence of other specified parts of digestive tract; Z88.8 Allergy status to other drugs, medicaments and biological substances; Z88.0 Allergy status to penicillin; Z79.899 Other long term (current) drug therapy
CPT/HCPCS: 36415; 71045; 80048; 80053; 81000-TC; 82272; 82550-TC; 82962; 83540-TC; 83550-TC; 83605; 83690-TC; 83880; 84484; 85007; 85025; 85027; 85379; 85610-TC; 85730-TC; 86886; 86900; 86901; 86920; 87040-TC; 87086; 87186-TC; 93005; 94640; 96361; 96365; 96375; 99285; C1751; J0696; J1200; J1750; J1815; J1956; J2001; J2765; J2930; J7030; J7040; J7060; J7613; P9021; Q0163

== ENCOUNTER 2018-12-14 14:22 | Inpatient (IN) | payer SELFPAY ==
[~2018-12-14] VITALS: Ht 152.4 cm; Wt 103.0 kg
[~2018-12-14 14:22] MED LIST changes: +CYAN100010 PO; -GLU500 PO; +LORA2TAB PO; +MULT-1117 PO; -SACC250C3 PO; +SUCR1TAB78 PO; +TRAM50TA2 PO; +VITD400 PO; -[UNRECOGNIZED DRUG - OTHER]
[2018-12-14 14:30] VITALS: BP_SYST 144
[2018-12-14] MEDS ORDERED: LORazepam 2 MG/ML VIAL (FOR ER USE) IVP ONE ×2 (17:30→21:00)
[2018-12-14] MEDS ORDERED: NACL 0.9% 1,000 ML IV ONE ×2 (17:30→21:00)
[2018-12-14 17:35] LABS: BASOPHILS # (AUTO) 0.1 K/uL (0.0-0.2); BASOPHILS % (AUTO) 0.6 % (0.0-2.0); EOSINOPHILS # (AUTO) 0.1 K/uL (0.0-0.4); EOSINOPHILS % (AUTO) 0.5 % (0.0-4.0); HEMATOCRIT 35.1 % (36-48); HEMOGLOBIN 11.4 g/dL (12.0-16.0); LYMPHOCYTES # (AUTO) 1.7 K/uL (1.0-5.5); LYMPHOCYTES % (AUTO) 10.1 % (20.5-51.5); MEAN CORPUSCULAR HEMOGLOBIN 29 pg (27-31); MEAN CORPUSCULAR HGB CONC 33 % (32-36); MEAN CORPUSCULAR VOLUME 89 fL (79.0-98.0); MONOCYTES % (AUTO) 6.1 % (1.7-9.3); NEUTROPHILS # (AUTO) 14.2 K/uL (1.8-7.7); NEUTROPHILS % (AUTO) 82.7 % (40.0-70.0); PLATELET COUNT (AUTO) 568 K/uL (130-430); RED BLOOD CELL COUNT(AUTO) 3.96 MIL/uL (4.2-6.2); RED CELL DISTRIBUTION WIDTH 15.9 % (9.0-15.0); WHITE BLOOD COUNT (AUTO) 17.1 K/uL (4.8-10.8)
[2018-12-14 19:06] LABS: POTASSIUM 4.3 mmol/L (3.5-5.1)
[2018-12-14 19:07] LABS: ALBUMIN 2.8 g/dL (3.4-4.8); CALCIUM 9.5 mg/dL (8.4-11.0); CREATININE 0.93 mg/dL (0.55-1.30); TOTAL BILIRUBIN 0.3 mg/dL (0.0-1.0)
[2018-12-14] MEDS ORDERED: MORPHINE 4 MG/ML INJ. SYRINGE IVP ONE (21:00)
[2018-12-14 21:05] LABS: BILIRUBIN,URINE NEGATIVE (NEGATIVE); BLOOD, URINE NEGATIVE (NEGATIVE); CLARITY/URINE SL CLOUDY (CLEAR); COLOR,URINE YELLOW (YELLOW); GLUCOSE,URINE NEGATIVE (NEGATIVE); KETONES,URINE NEGATIVE (NEGATIVE); LEUKOCYTE ESTERASE ,URINE TRACE (NEGATIVE); NITRITE, URINE NEGATIVE (NEGATIVE); PROTEIN URINE TRACE (NEGATIVE); UROBILINOGEN,URINE 0.2 (0.2-1.0)
[2018-12-14 21:11] LABS: BACTERIA,URINE MANY /HPF (None Seen); CALCIUM OXALATE CRYSTALS,UR 0-10 /HPF (None Seen); WBC,URINE 20-50 /HPF (0-3)
[2018-12-14] MEDS ORDERED: ONDANSETRON HCL 4 MG/2 ML VIAL IVP PRN (22:15)
[2018-12-14] MEDS ORDERED: ACETAMINOPHEN/CODEINE 300 MG-30 MG TABLET PO PRN ×2 (22:15)
[2018-12-14] MEDS ORDERED: ACETAMINOPHEN 325 MG TABLET PO PRN (22:15)
[2018-12-14] MEDS ORDERED: NACL 0.9% 2,000 ML IV ONE (22:30)
[2018-12-14 22:48] VITALS: BP_SYST 132
[2018-12-14 23:00] VITALS: BP_SYST 135
[2018-12-14] MEDS ORDERED: metroNIDAZOLE 500 mg/NS 100 ML IV SCH (23:00)
[2018-12-14] MEDS ORDERED: metroNIDAZOLE 500 mg/NS 200 ML IV ONE (23:41)
[2018-12-15 00:02] VITALS: BP_SYST 117
[2018-12-15] MEDS ORDERED: metroNIDAZOLE 500 mg/NS 100 ML IV SCH (06:00)
[2018-12-15 07:01] LABS: BASOPHILS # (AUTO) 0.1 K/uL (0.0-0.2); BASOPHILS % (AUTO) 0.4 % (0.0-2.0); EOSINOPHILS % (AUTO) 0.3 % (0.0-4.0); HEMATOCRIT 29.2 % (36-48); HEMOGLOBIN 9.4 g/dL (12.0-16.0); LYMPHOCYTES # (AUTO) 1.2 K/uL (1.0-5.5); LYMPHOCYTES % (AUTO) 9.9 % (20.5-51.5); MEAN CORPUSCULAR HEMOGLOBIN 29 pg (27-31); MEAN CORPUSCULAR HGB CONC 32 % (32-36); MEAN CORPUSCULAR VOLUME 89 fL (79.0-98.0); MONOCYTES # (AUTO) 0.7 K/uL (0.0-1.0); MONOCYTES % (AUTO) 5.7 % (1.7-9.3); NEUTROPHILS # (AUTO) 9.9 K/uL (1.8-7.7); NEUTROPHILS % (AUTO) 83.7 % (40.0-70.0); PLATELET COUNT (AUTO) 402 K/uL (130-430); RED BLOOD CELL COUNT(AUTO) 3.28 MIL/uL (4.2-6.2); RED CELL DISTRIBUTION WIDTH 15.6 % (9.0-15.0); WHITE BLOOD COUNT (AUTO) 11.8 K/uL (4.8-10.8)
[2018-12-15 07:46] LABS: CALCIUM 8.6 mg/dL (8.4-11.0); CREATININE 0.85 mg/dL (0.55-1.30); POTASSIUM 4.7 mmol/L (3.5-5.1)
[2018-12-15 07:52] LABS: ALBUMIN 2.3 g/dL (3.4-4.8); TOTAL BILIRUBIN 0.2 mg/dL (0.0-1.0)
[2018-12-15 08:02] VITALS: BP_SYST 129
[2018-12-15 10:49] LABS: ERYTHROCYTE SEDIMENTATION RATE 107 MM/HR (0-20)
[2018-12-15 12:42] VITALS: BP_SYST 104
[2018-12-15] MEDS ORDERED: IOHEXOL 100 ML IV ONE (12:42)
[2018-12-15] MEDS: metroNIDAZOLE 500 mg/NS 100 ML IV SCH ×2 (13:53→22:03)
[2018-12-15 14:57] LABS: TOTAL IRON BIND. CAPACITY 233 ug/dL (250-450)
[2018-12-15 16:17] VITALS: BP_SYST 108
[2018-12-15] MEDS: SOD FERRIC GLUC COMPLEX/SUC 125 MG in NS 100 ML IV SCH (17:45)
[2018-12-15 20:00] VITALS: BP_SYST 148
[2018-12-15] MEDS: MULTIVITAMINS TAB 1 TABLET PO SCH (21:59)
[2018-12-15] MEDS: LORazepam 1 MG TABLET PO PRN (21:59)
[2018-12-15] MEDS: PANTOPRAZOLE SODIUM 40 MG TAB PO SCH (21:59)
[2018-12-15] MEDS: MESALAMINE 250 MG CAPSULE.SA PO SCH (22:01)
[2018-12-16 00:09] VITALS: BP_SYST 103
[2018-12-16] MEDS: metroNIDAZOLE 500 mg/NS 100 ML IV SCH ×3 (05:24→21:38)
[2018-12-16 08:51] LABS: AFP, TUMOR MARKER 2.6 ng/mL (0.0-8.3); CEA 2.2 ng/mL (0.0-4.7)
[2018-12-16] MEDS: PANTOPRAZOLE SODIUM 40 MG TAB PO SCH (08:59)
[2018-12-16] MEDS: MULTIVITAMINS TAB 1 TABLET PO SCH ×2 (09:00→21:36)
[2018-12-16 09:06] VITALS: BP_SYST 95
[2018-12-16] MEDS: MESALAMINE 250 MG CAPSULE.SA PO SCH ×2 (09:26→21:36)
[2018-12-16 12:23] VITALS: BP_SYST 117
[2018-12-16] MEDS: SOD FERRIC GLUC COMPLEX/SUC 125 MG in NS 100 ML IV SCH (16:07)
[2018-12-16 16:10] VITALS: BP_SYST 133
[2018-12-16 20:00] VITALS: BP_SYST 116
[2018-12-16] MEDS: LORazepam 1 MG TABLET PO PRN (21:36)
[2018-12-17 01:17] VITALS: BP_SYST 103
[2018-12-17] MEDS: metroNIDAZOLE 500 mg/NS 100 ML IV SCH ×3 (05:34→21:02)
[2018-12-17 06:35] LABS: BASOPHILS # (AUTO) 0.1 K/uL (0.0-0.2); BASOPHILS % (AUTO) 1.2 % (0.0-2.0); EOSINOPHILS # (AUTO) 0.1 K/uL (0.0-0.4); EOSINOPHILS % (AUTO) 0.7 % (0.0-4.0); HEMATOCRIT 30.8 % (36-48); HEMOGLOBIN 9.7 g/dL (12.0-16.0); LYMPHOCYTES % (AUTO) 7.9 % (20.5-51.5); MEAN CORPUSCULAR HEMOGLOBIN 28 pg (27-31); MEAN CORPUSCULAR HGB CONC 32 % (32-36); MEAN CORPUSCULAR VOLUME 89 fL (79.0-98.0); MONOCYTES # (AUTO) 0.6 K/uL (0.0-1.0); NEUTROPHILS # (AUTO) 10.3 K/uL (1.8-7.7); NEUTROPHILS % (AUTO) 85.2 % (40.0-70.0); PLATELET COUNT (AUTO) 416 K/uL (130-430); RED BLOOD CELL COUNT(AUTO) 3.45 MIL/uL (4.2-6.2); RED CELL DISTRIBUTION WIDTH 16.1 % (9.0-15.0); WHITE BLOOD COUNT (AUTO) 12.1 K/uL (4.8-10.8)
[2018-12-17 06:37] LABS: INR 1.1 (0.8-1.2); PROTHROMBIN TIME 10.9 SECS (9.5-12.5)
[2018-12-17] MEDS: PANTOPRAZOLE SODIUM 40 MG TAB PO SCH (06:38)
[2018-12-17 06:40] LABS: ALBUMIN 2.4 g/dL (3.4-4.8); CALCIUM 9.2 mg/dL (8.4-11.0); CREATININE 0.94 mg/dL (0.55-1.30); POTASSIUM 4.2 mmol/L (3.5-5.1); TOTAL BILIRUBIN 0.2 mg/dL (0.0-1.0)
[2018-12-17] MEDS: MESALAMINE 250 MG CAPSULE.SA PO SCH ×2 (08:54→20:46)
[2018-12-17] MEDS: MULTIVITAMINS TAB 1 TABLET PO SCH ×2 (08:54→20:46)
[2018-12-17 08:56] VITALS: BP_SYST 103
[2018-12-17 11:29] VITALS: BP_SYST 124
[2018-12-17 13:45] LABS: HEPATITIS A AB, IgM Negative (Negative); HEPATITIS B CORE AB, IgM Negative (Negative); HEPATITIS B SURFACE AG Negative (Negative)
[2018-12-17] MEDS: SOD FERRIC GLUC COMPLEX/SUC 125 MG in NS 100 ML IV SCH (16:24)
[2018-12-17 16:53] VITALS: BP_SYST 128
[2018-12-17 20:00] VITALS: BP_SYST 126
[2018-12-17] MEDS ORDERED: SULFAMETHOXAZOLE/TRIMETHOPR DS 1 TABLET PO SCH (21:00)
[2018-12-17] MEDS ORDERED: TEMAZEPAM 15 MG CAPSULE PO SCH (21:00)
[2018-12-18] MEDS: metroNIDAZOLE 500 mg/NS 100 ML IV SCH (05:19)
[2018-12-18 05:51] VITALS: BP_SYST 118
[2018-12-18] MEDS: PANTOPRAZOLE SODIUM 40 MG TAB PO SCH (06:31)
[2018-12-18] MEDS ORDERED: LIDOCAINE 1%, 20 ML MDV 20 ML ONE (10:33)
[2018-12-18] MEDS ORDERED: FLA250 PO (13:04)
[2018-12-18] MEDS ORDERED: SULF1TAB48 PO (13:04)
[2018-12-18] MEDS ORDERED: MORP15TA PO (13:08)
[2018-12-18 13:14] VITALS: BP_SYST 118
[2018-12-19 22:08] LABS: ANTI NUCLEAR AB WITH REFLEX Negative (Negative)
== END 2018-12-18 13:40 | disposition home or self-care (01) | DRG 441 ==
LOC: SED 14:22 → SMU 22:16
PROVIDERS: ADMIT Internal Medicine; ATTEND Internal Medicine
PROC: 0FB03ZX Excision of Liver, Percutaneous Approach, Diagnostic (ICD-10-PCS; principal; 2018-12-18)
DX: K75.0 Abscess of liver (principal); E43 Unspecified severe protein-calorie malnutrition; N39.0 Urinary tract infection, site not specified; K21.9 Gastro-esophageal reflux disease without esophagitis; K44.9 Diaphragmatic hernia without obstruction or gangrene; I25.10 Atherosclerotic heart disease of native coronary artery without angina pectoris; F41.9 Anxiety disorder, unspecified; F32.9 Major depressive disorder, single episode, unspecified; D50.9 Iron deficiency anemia, unspecified; B96.20 Unspecified Escherichia coli [E. coli] as the cause of diseases classified elsewhere; R16.0 Hepatomegaly, not elsewhere classified; E66.01 Morbid (severe) obesity due to excess calories; Z90.49 Acquired absence of other specified parts of digestive tract; Z88.0 Allergy status to penicillin; Z88.8 Allergy status to other drugs, medicaments and biological substances; Z90.710 Acquired absence of both cervix and uterus
CPT/HCPCS: 36415; 47000; 73030; 74170-TC; 76700-TC; 80053; 80074; 81000-TC; 82105; 82378; 83540-TC; 83550-TC; 83605; 83690-TC; 85025; 85044-TC; 85610-TC; 85651-TC; 85730-TC; 86038; 86301; 86304; 87040-TC; 87086; 87186-TC; 88307; 88313; 88341; 88342; 96365; 96375; 99285; J1956; J2001; J2060; J2270; J2405; J2916; J3490; J7030; Q9967